=== PATIENT | female | born 1990 | race Caucasian/White ===

== ENCOUNTER → 2020-10-12 | Outpatient (CLI) | payer BC | LOC: COL.RAD 10-08 14:45 | DX: R94.4 Abnormal results of kidney function studies (principal); Z82.71 Family history of polycystic kidney ==

== ENCOUNTER 2022-05-27 22:06 | Inpatient (IN) | payer BC ==
[~2022-05-27] VITALS: Ht 165.1 cm; Wt 75.9 kg
--- NOTE | 2022-05-27 22:20 | NUR ---
G1 at 37 weeks and 6 days arrives to unit with complaint of spontaneous rupture of membranes around 1945. Pt reports feeling large gush and continued to leak intermittently. Pt reports good movement. Denies contractions or vaginal bleeding. Pt reports fluid has been clear. Denies problems this . Denies headaches, blurry vision, or RUQ pain. Clean gown on. Pt oriented to room, call light within reach, bed in low and locked position. US and toco explained and applied. Admission assessment completed. Vitals obtained. Amnitrace inconclusive. SVE 2/50/-3, unable to palpate position or bag of water. ROM plus obtained. Pt updated on plan of care.
[2022-05-27 23:00] VITALS: BP 120/78; PULSE 84; TEMP 97.9
[2022-05-27 23:30] VITALS: BP 126/76; PULSE 80
[2022-05-28] VITALS (72 sets, daily range): BP systolic 104–142; BP diastolic 55–90; PULSE 64–104; TEMP 97.3–98.8
--- NOTE | 2022-05-28 00:40 | NUR ---
18G IV started in left forearm with 1 attempt. Admission labs obtained off IV start. Lactated Ringers infusing to gravity. Consents reviewed and signed with patient and spouse, all questions answered.
[2022-05-28 01:18] LABS: BASO % 0.3 % (0.0-2.0); EOS % 0.3 % (0.0-4.0); GRAN # 10.2 K/mm3 (1.4-6.5); GRAN % 72.5 % (42.2-75.2); HEMATOCRIT 39.3 % (37.0-47.0); HEMOGLOBIN 13.3 g/dl (12.5-16.0); LYMPH # 2.5 K/mm3 (1.2-3.4); LYMPH % 17.7 % (20.0-51.0); MEAN CELL VOLUME 87 fl (80.0-100.0); MEAN CORPUSCULAR HEMOGLOBIN 30 pg (27-31); MEAN CORPUSCULAR HGB CONC 34 g/dl (33.0-37.0); MEAN PLATELET VOLUME 11.7 fl (7.4-10.4); MONO # 1.1 K/mm3 (0.1-0.6); MONO % 7.8 % (1.7-9.3); PLATELET COUNT 202 K/mm3 (130-400); RED BLOOD COUNT 4.51 M/mm3 (4.10-5.30); REDCELL DISTRIBUTION WIDTH-CV 14.6 % (11.5-14.5)
--- NOTE | 2022-05-28 01:55 | NUR ---
Category 1 FHR tracing obtained. Pt denies feeling painful contractions, does not want SVE at this time. Pitocin started at 2 mu/min.
[2022-05-28] MEDS ORDERED: PRENATAL TABLET PO (03:41)
[2022-05-28] MEDS ORDERED: FERROUSAL325 MG PO (03:42)
--- NOTE | 2022-05-28 09:20 | NUR ---
LUCIA FORDE NOTIFIED OF PATIENT REQUEST FOR EPIDURAL AT THIS TIME.
--- NOTE | 2022-05-28 09:45 | NUR ---
PT SITTING AT EDGE OF BED, EFM DIFFICULT D/T PATIENT POSITIONING. 0943: SINGLE SHOT EPIDURAL PLACEMENT PER LUCIA FORDE. PT TOLERATED PROCEDURE WELL. LR BOLUS PER PROTOCOL.
--- NOTE | 2022-05-28 15:25 | NUR ---
1525: SVE COMPLETE/+1, ROOM PREPARED TO BEING PUSHING, ALL APPROPRIATE STAFF NOTIFIED. SEE PHYSICIAN NOTIFICATIONS. 1535: PT COACHED THROUGH PUSHING EFFORTS. MOVES HEAD WELL. 1600: RECURRENT VARIABLES WITH CONTRACTIONS. SEE PHYSICIAN NOTIFICATION. 1721: OF VIABLE FEMALE PER . NUCHAL X1. INFANT PLACED ON MATERNAL ABDOMEN. CORD CLAMPED X2 AND CUT BY PER PT REQUEST. CARE OF ASSUMED BY AMARA Painting RN. 1725: OF PLACENTA AT THIS TIME. PITOCIN BOLUS INFUSING PER PROTOCOL. BEGINS REPAIR OF 2ND DEGREE PERINEAL LACERATION WITH BILATERAL VAGINAL WALL LACERATIONS WELL. PT TOLERATING SUTURING WELL, DENIES PAIN. FUNDUS FIRM AT UMBILICUS. LOCHIA WNL. WILL CONTINUE WITH PLAN OF CARE.
[2022-05-29 02:00] VITALS: BP 113/71; PULSE 85; TEMP 98.5
[2022-05-29 05:26] VITALS: BP 116/73; PULSE 82; TEMP 97.8
[2022-05-29 08:41] VITALS: BP 114/69; PULSE 90; TEMP 97.7
--- NOTE | 2022-05-29 12:42 | NUR ---
Initial visit; Parents thanked Senior Python Developer for offering congratulations and God's blessings for the of their daughter. Senior Python Developer thanked family for choosing [facility].
--- NOTE | 2022-05-29 14:05 | NUR ---
BABY BROUGHT BACK INTO ROOM AFTER ANTIBIOTIC ADMINISTRATION. PT AND SPOUSE AGREE THEY ARE READY FOR EDUCATION VIDEOS. TV CART PLACED IN ROOM AND DVD STARTED.
[2022-05-29 16:53] VITALS: BP 118/75; PULSE 75
[2022-05-29 20:40] VITALS: BP 119/62; PULSE 92; TEMP 97.6
[2022-05-30 07:25] VITALS: BP 120/72; PULSE 72
--- NOTE | 2022-05-30 07:40 | NUR ---
0730 THIS RN TO ROOM FOR AM VITALS/ASSESSMENT. POC REVIEWED, WHITE BOARD UPDATED, EDUCATED ON BOARDER STATUS TODAY. QUESTIONS/CONCERNS INVITED, NONE AT THIS TIME.
[2022-05-30] MEDS ORDERED: IBU800 M1 PO (08:19)
== END 2022-05-30 09:25 | disposition home or self-care (01) | DRG 806 ==
LOC: LDRO 22:06 → LDR 23:42 → OB 23:42
PROVIDERS: ADMIT Obstetrics & Gynecology
PROC: 10E0XZZ Delivery of Products of Conception, External Approach (ICD-10-PCS; principal; 2022-05-27)
PROC: 0KQM0ZZ Repair Perineum Muscle, Open Approach (ICD-10-PCS; 2022-05-27)
DX: O34.13 Maternal care for benign tumor of corpus uteri, third trimester (principal); O26.833 Pregnancy related renal disease, third trimester; Z37.0 Single live birth; Q61.2 Polycystic kidney, adult type; D25.9 Leiomyoma of uterus, unspecified; O43.893 Other placental disorders, third trimester; O70.1 Second degree perineal laceration during delivery; O32.6XX0 Maternal care for compound presentation, not applicable or unspecified; Z3A.38 38 weeks gestation of pregnancy
CPT/HCPCS: J2590; J2795; J7120